=== PATIENT | male | born 1960 | race Two or more races ===

== ENCOUNTER 2025-01-28 08:24 | Emergency (ER) | payer OTHER ==
[~2025-01-28] VITALS: Ht 172.7 cm; Wt 81.5 kg
[2025-01-28 08:53] VITALS: PULSE 90; RESP 20; O2SAT 96
--- NOTE | 2025-01-28 09:19 | DVH ---
CHEST RADIOGRAPH Indication: SOB HX RIB FX Technique: Frontal and lateral view of the chest was obtained Comparison: None FINDINGS: Lines and Tubes: None Lungs: Mild increased interstitial prominence. Pleura: No effusion. No pneumothorax. Cardiomediastinal contours: Unremarkable Bones: Unremarkable IMPRESSION: Possible mild pulmonary vascular congestion or viral pneumonia
--- NOTE | 2025-01-28 09:20 | ED.PDOC ---
History of Present Illness HPI Comments 64-year-old male with PMHx Lung Cancer presents with a chief complaint of RUQ rib cage pain x onset November 2024. Patient states that he had a fall and fractured his ribs in November 2024. Patient is now stating that he is having pain to the area and the pain is made worse with movement. Patient is mainly her for pain management. No other symptoms or modifying factors present at this time. Chief Complaint: Shortness of Breath Time Seen by MD: 09:11 Primary Care Provider: unknown Reviewed Notes: Medications, Allergies Allergies: Coded Allergies: NO KNOWN ALLERGIES (Unverified , 01/28/25) Information Source: Patient Mode of Arrival: Ambulatory Severity: Moderate Timing: Months Duration: Intermittent Prehospital treatment: None Past Medical History PAST MEDICAL HISTORY: Cancer Surgical History: Denies all surgeries Family History Family History: Reviewed,noncontributory to illness Social History Smoker: Non-Smoker Alcohol: Denies ETOH Use Drugs: Denies Drug Use Lives In: Home Constitutional: denies: chills, diaphoresis, fatigue, fever, malaise, sweats, weakness, others EENTM: denies: blurred vision, double vision, ear bleeding, ear discharge, ear drainage, ear pain, ear ringing, eye pain, eye redness, hearing loss, mouth pain, mouth swelling, nasal discharge, nose bleeding, nose congestion, nose pain, photophobia, tearing, throat pain, throat swelling, voice changes, others Respiratory: denies: cough, hemoptysis, orthopnea, SOB at rest, shortness of breath, SOB with excertion, stridor, wheezing, others Cardiovascular: denies: chest pain, dizzy spells, diaphoresis, Dyspnea on exertion, edema, irregular heart beat, left arm pain, lightheadedness, palpitations, PND, syncope, others Gastrointestinal: denies: abdomen distended, abdominal pain, blood streaked bowels, constipated, diarrhea, dysphagia, difficulty swallowing, hematemesis, melena, nausea, poor appetite, poor fluid intake, rectal bleeding, rectal pain, vomiting, others Genitourinary: denies: burning, dysuria, flank pain, frequency, hematuria, incontinence, penile discharge, penile sore, pain, testicle pain, testicle swelling, urgency, others Neurological: denies: dizziness, fainting, headache, left sided numbness, left sided weakness, numbness, paresthesia, pre-existing deficit, right sided numbness, right sided weakness, seizure, speech problems, tingling, tremors, weakness, others Musculoskeletal: reports: muscle pain; denies: back pain, gout, joint pain, joint swelling, muscle stiffness, neck pain, others Integumetry: denies: bruises, change in color, change in hair/nails, dryness, laceration, lesions, lumps, rash, wounds, others Allergic/Immunocompromised: denies: Difficulty Healing, Frequent Infections, Hives, Itching, others Hematologic/Lymphatic: denies: anemia, blood clots, easy bleeding, easy br uising, swollen glands, others Endocrine: denies: excessive hunger, excessive sweating, excessive thirst, excessive urination, flushing, intolerance to cold, intolerance to heat, unexplained weight gain, unexplained weight loss, others Psychiatric: denies: anxiety, bipolar disorder, depression, hopeless, panic disorder, schizophrenia, sleepless, suicidal, others All Other Systems: Reviewed and Negative Physical Exam General Appearance: No Apparent Distress, Normal HEENT: Normal ENT Inspection, Pharynx Normal, TMs Normal Neck: Full Range of Motion, Non-Tender, Normal, Normal Inspection Respiratory: Chest Non-Tender, Lungs Clear, No Accessory Muscle Use, No Respiratory Distress, Normal Breath Sounds Cardiovascular: No Edema, No JVD, No Murmur, No Gallop, Normal Peripheral Pulses, Regular Rate/Rhythm Breast Exam: Deferred Gastrointestinal: No Organomegaly, No Pulsatile Mass, Normal Bowel Sounds, RUQ, Soft, Tenderness Genitalia: Deferred Pelvic: Deferred Rectal: Deferred Extremities: No calf tenderness, Normal capillary refill, Normal inspection, Normal range of motion, Non-tender, No pedal edema Musculoskeletal : Apperance: Normal Neurologic: Alert, applied science [employer] technologies dean II-XII nml as Tested, No Motor Deficits, Normal Affect, Normal Mood, No Sensory Deficits Cerebellar Function: Normal Reflexes: Normal Skin: Dry, Normal Color, Warm Lymphatic: No Adenopathy Was a procedure done? Was a procedure done?: No Differential Dx Considerations may include: rib fracture, chest wall strain, chest wall contusion, pneumonia, lung mass, ptx, zoster X-Ray, Labs, Meds, VS Vital Signs Date Time Temp Pulse Resp B/P (MAP) Pulse Ox O2 Delivery O2 Flow Rate FiO2 3/16/25 08:54 97.9 90 20 116/82 (93) 96 97.9 01/28/25 08:54 90 22 96 Room Air 01/28/25 08:53 90 20 96 Room Air* 0 21 01/28/25 08:46 20 97 Room Air* 0 21 01/28/25 08:43 98.0 93 20 110/58 (75) 97 98.0 01/28/25 08:41 90 Time of 1ST Reevaluation: 09:41 Reevaluation 1ST: Unchanged Time of 2ND Reevaluation: 10:29 Reevaluation 2ND: Improved Patient Education/Counseling: Diagnosis, Treatment, Prognosis, Need For Follow Up Family Education/Counseling: No Family Present Additional Information Previous visit documents reviewed: The following tests were ordered, and results were reviewed by me: CXR, EKG I reviewed and agreed with the following test results read by other providers: Radiologist I discussed treatment and results with medical personnel and: Patient Departure 1 Departure Time of Disposition: 10:29 Impression: Primary Impression: Pneumonia Qualified Codes: J18.9 - Pneumonia, unspecified organism Additional Impression: Chest wall pain Disposition: 01 HOME / SELF CARE / HOMELESS Condition: Good e-Prescriptions Ibuprofen Micronized (MOTRIN TABLET) 600 Mg Tb 600 MG PO TID PRN, #40 TAB *Black box warning-NSAIDS can increase risk of CA & hypertension, GI irritation, ulceration, bleed, perferation. Do not use post cardiac surgery. Use short duration/lowest effective dose. Prov: HUONG DECKER MD 01/28/25 Azithromycin (Zithromax Z-Christian) 250 Mg Tab 250 MG PO DAILY for 5 Days, #6 TAB Prov: HUONG DECKER MD 01/28/25 Discharged With: Self Critical Care Note Critical Care Time?: No Stability Stability form required: No Heart Score Heart Score: Heart Score Response (Comments) Value History N/A 0 EKG N/A 0 Age N/A 0 Risk Factors N/A 0 Troponin N/A 0 Total 0 I personally scribed for HUONG DECKER MD ([email or web address]) on 01/28/25 at 09:20. Electronically submitted by Tima Riggs ([email or web address]). HUONG DECKER MD Jan 28, 2025 09:20
[2025-01-28] MEDS ORDERED: AZITTAB PO (10:31)
[2025-01-28] MEDS ORDERED: IBU600T PO (10:31)
[2025-01-28 10:32] VITALS: BP 121/80; PULSE 88; RESP 18; TEMP 98.1; O2SAT 96
--- NOTE | 2025-01-29 14:41 | ECG ---
[facility] Test Date: 2025-01-28 Test Time: 08:41:36 Pat Name: JANETTE MADISON Department: er Room: Gender: M Acid Concentrator: : 1960 Requested By: HUONG DECKER Order Number: [id number] Reading MD: Chino Rangel Measurements Intervals [place] Rate: 90 P: 48 TN: 165 QRS: 40 QRSD: 106 T: 8 QT: 381 QTc: 467 Interpretive Statements Sinus rhythm Consider anterior infarct Electronically Signed On 01-31-2025 22:31:14 PDT by Chino Rangel Please click the below link to view image of tracing.
== END 2025-01-28 10:53 | disposition home or self-care (01) ==
LOC: ER 08:24
DX: J18.9 Pneumonia, unspecified organism (principal); R07.89 Other chest pain
CPT/HCPCS: 71046; 93005

== ENCOUNTER 2025-02-01 09:11 | Inpatient (IN) | payer OTHER ==
[~2025-02-01] VITALS: Ht 174 cm; Wt 81.0 kg
[~2025-02-01 09:11] MED LIST: AZITTAB PO; IBU600T PO
--- NOTE | 2025-02-01 09:24 | ED.PDOC ---
SOB-HPI HPI Comments 64 y/o M, with PMHX of COPD and pneumonia presents to the ED for CC of rib pain. Patient states, he has been experiencing right sided rib pain with associated symptoms of shortness of breath x5days. Patient relays, that he was previously seen at [facility] on 01/27/25 and was diagnosed with pneumonia; patient was prescribe Zpack finished last tablet today (02/01/25). Patient endorses, that he believes symptoms are due to previous rib fracture in October 2024 however, is unsure. Patient denies fever, chills, cough, sore-throat, or chest pain. No other associated symptoms, modifiers, recent injuries or sick contacts at this time. Chief Complaint: Shortness of Breath Time Seen by MD: 09:25 Primary Care Provider: unknown Reviewed notes: Nurses Notes, Medications, Allergies Information Source: Patient Mode of Arrival: Ambulatory Severity: Moderate Timing: Hours Duration: Since onset Context: At Rest PE Risk Factors: None History of: COPD Prehospital treatment: None Modifying Factors: Nothing Past Medical History PAST MEDICAL HISTORY: Cancer, COPD Surgical History: Denies all surgeries Family History Family History: Reviewed,noncontributory to illness Social History Smoker: Non-Smoker Alcohol: Denies ETOH Use Drugs: Denies Drug Use Lives In: Home Constitutional: denies: chills, diaphoresis, fatigue, fever, malaise, sweats, weakness, others EENTM: denies: blurred vision, double vision, ear bleeding, ear discharge, ear drainage, ear pain, ear ringing, eye pain, eye redness, hearing loss, mouth pain, mouth swelling, nasal discharge, nose bleeding, nose congestion, nose pain, photophobia, tearing, throat pain, throat swelling, voice changes, others Respiratory: reports: shortness of breath; denies: cough, hemoptysis, orthopnea, SOB at rest, SOB with excertion, stridor, wheezing, others Cardiovascular: denies: chest pain, dizzy spells, diaphoresis, Dyspnea on exertion, edema, irregular heart beat, left arm pain, lightheadedness, palpitations, PND, syncope, others Gastrointestinal: denies: abdomen distended, abdominal pain, blood streaked bowels, constipated, diarrhea, dysphagia, difficulty swallowing, hematemesis, melena, nausea, poor appetite, poor fluid intake, rectal bleeding, rectal pain, vomiting, others Genitourinary: denies: burning, dysuria, flank pain, frequency, hematuria, incontinence, penile discharge, penile sore, pain, testicle pain, testicle swelling, urgency, others Neurological: denies: dizziness, fainting, headache, left sided numbness, left sided weakness, numbness, paresthesia, pre-existing deficit, right sided numbness, right sided weakness, seizure, speech problems, tingling, tremors, weakness, others Musculoskeletal: reports: others (rib pain); denies: back pain, gout, joint pain, joint swelling, muscle pain, muscle stiffness, neck pain Integumetry: denies: bruises, change in color, change in hair/nails, dryness, laceration, lesions, lumps, rash, wounds, others Allergic/Immunocompromised: denies: Difficulty Healing, Frequent Infections, Hives, Itching, others Hematologic/Lymphatic: denies: anemia, blood clots, easy bleeding, easy bruising, swollen glands, others Endocrine: denies: excessive hunger, excessive sweating, excessive thirst, excessive urination, flushing, intolerance to cold, intolerance to heat, unexplained weight gain, unexplained weight loss, others Psychiatric: denies: anxiety, bipolar disorder, depression, hopeless, panic disorder, schizophrenia, sleepless, suicidal, others All Other Systems: Reviewed and Negative Physical Exam General Appearance: Moderate Distress HEENT: Normal ENT Inspection, Pharynx Normal, TMs Normal Neck: Full Range of Motion, Non-Tender, Normal, Normal Inspection Respiratory: Accessory Muscle Use, Wheezing Cardiovascular: No Edema, No JVD, No Murmur, No Gallop, Normal Peripheral Pulses, Regular Rate/Rhythm Breast Exam: Deferred Gastrointestinal: No Organomegaly, Non Tender, No Pulsatile Mass, Normal Bowel Sounds, Soft Genitalia: Deferred Pelvic: Deferred Rectal: Deferred Extremities: No calf tenderness, Normal capillary refill, Normal inspection, Normal range of motion, Non-tender, No pedal edema Musculoskeletal : Apperance: Normal Neurologic: Alert, residency coordinator II-XII nml as Tested, No Motor Deficits, Normal Affect, Normal Mood, No Sensory Deficits Cerebellar Function: Normal Reflexes: Normal Skin: Dry, Normal Color, Warm Peripheral Pulses: 3+ Radial (R), 3+ Radial (L) Lymphatic: No Adenopathy Was a procedure done? Was a procedure done?: No Differential Dx Differential Diagnosis: Anxiety, Asthma, Bronchitis, CHF, COPD, Pneumonia, Respiratory Distress, Sinusitis, Pharyngitis X-Ray, Labs, Meds, VS Vital Signs Date Time Temp Pulse Resp B/P (MAP) Pulse Ox O2 Delivery O2 Flow Rate FiO2 02/01/25 10:08 98.2 89 16 123/78 (93) 98 98.2 02/01/25 10:08 89 16 98 Room Air* 0 21 02/01/25 09:23 96 02/01/25 09:18 97.9 100 22 115/73 (87) 97 97.9 02/01/25 09:18 22 97 Room Air* 0 21 Lab Test 02/01/25 10:00 Range/Units White Blood Count 4.1 L 4.4-10.8 10^3/uL Red Blood Count 4.45 L 4.5-5.90 10^6/uL Hemoglobin 15.5 13.5-17.5 g/dL Hematocrit 45.5 41.0-53.0 % Mean Corpuscular Volume 102.2 H 80.0-100.0 fL Mean Corpuscular Hemoglobin 34.9 H 28.0-32.0 pg Mean Corpuscular Hemoglobin Concent 34.1 32.0-36.0 g/dL Red Cell Distribution Width 15.7 H 11.8-14.3 % Platelet Count 247 140-450 10^3/uL Mean Platelet Volume 7.4 6.9-10.8 fL Neutrophils (%) (Auto) 39.6 37.0-80.0 % Lymphocytes (%) (Auto) 49.0 10.0-50.0 % Monocytes (%) (Auto) 7.1 0.0-12.0 % Eosinophils (%) (Auto) 3.1 0.0-7.0 % Basophils (%) (Auto) 1.2 0.0-2.0 % Neutrophils # (Auto) 1.6 1.6-8.6 10 ^3/uL Lymphocytes # (Auto) 2.0 0.4-5.4 10 ^3/uL Monocytes # (Auto) 0.3 0-1.3 10 ^3/uL Eosinophils # (Auto) 0.1 0-0.8 10 ^3/uL Basophils # (Auto) 0 0-0.2 10 ^3/uL Nucleated Red Blood Cells 0.2 % Sodium Level 143 136-145 mmol/L Potassium Level 4.2 3.5-5.1 mmol/L Chloride Level 109 H 98-107 mmol/L Carbon Dioxide Level 24 20-31 mmol/L Anion Gap 10 5-15 Blood Urea Nitrogen 7 L 9-23 mg/dL Creatinine 0.84 0.700-1.30 mg/dL Glomerular Filtration Rate Calc 96 >90 mL/min BUN/Creatinine Ratio 8.3 L 10.0-20.0 Serum Glucose 82 74-106 mg/dL Calcium Level 9.3 8.7-10.4 mg/dL Current Medications Medications (Trade) Dose Ordered Sig/Adlair Route Start Time Stop Time Status Last Admin Methylprednisolone Sodium Succinate (Solu Medrol) 125 mg ONCE ONCE IV 02/01/25 10:45 02/01/25 10:46 DC 02/01/25 10:53 Ceftriaxone Sodium 50 ml @ 100 mls/hr ONCE ONCE IV 02/01/25 10:45 02/01/25 11:15 DC 02/01/25 10:54 [place] [address] Ph: [phone] DIAGNOSTIC IMAGING Diagnostic Imaging Report : [id number] Signed PATIENT: JANETTE MADISON ACCT: [id number] UNIT: [id number] : 1960 LOC: ER ROOM / BED: / AGE / SEX: 64 / M ADM STATUS: REG ER SERVICE [id number] ORDERING PHYSICIAN: ADAM BROWN MD PROCEDURE(s): CXRP - CHEST PORTABLE REASON: cough ORDER NUMBER(s): [id number], ACCESSION NUMBER(s): [id number] CHEST RADIOGRAPH Indication: cough Technique: Single frontal view of the chest was obtained COMPARISON: None FINDINGS: Lines and Tubes: None Lungs: Peripheral right mid and lower lung airspace disease. Pleura: No effusion. No pneumothorax. Cardiomediastinal contours: Unremarkable Bones: Unremarkable IMPRESSION: Right mid and lower lung airspace disease. ATED BY: SUSHANT BROWN MD DICTATED DATE/TIME: 02/01/25 1012 SIGNED BY: SUSHANT BROWN MD SIGNED DATE/TIME: 02/01/25 1012 CC: Patient alert. Complaining of shortness a breath. Feels several weeks ago for which she was diagnosed with multiple rib fractures. Vitals stable. He does have COPD. Stopped smoking. He does use accessory muscles to help him breathe. Was given steroid. Was given Rocephin. Possible pneumonitis. Reviewed his previous visit for which she was given antibiotics for possible pneumonia. Explained to the patient. Continue cardiac monitoring. Time of 1ST Reevaluation: 09:55 Reevaluation 1ST: Unchanged Patient Education/Counseling: Diagnosis, Treatment Family Education/Counseling: No Family Present Departure 1 Departure Time of Disposition: 10:47 Impression: Primary Impression: Pneumonitis Additional Impression: COPD exacerbation Disposition: ADMITTED INPATIENT Admit to: Med Surg Condition: Guarded Critical Care Note Critical Care Time?: No Stability Stability form required: No Heart Score Heart Score: Heart Score Response (Comments) Value History Slightly Suspicious 0 EKG Normal 0 Age >65 2 Risk Factors 1 or 2 risk factors 1 Troponin N/A 0 Total 3 I personally scribed for ADAM BROWN MD ([email or web address]) on 02/01/25 at 09:24. Electronically submitted by Cassidy Rubio ([email or web address]). I personally scribed for ADAM BROWN MD ([email or web address]) on 02/01/25 at 09:48. Electronically submitted by Cassidy Rubio ([employer]). I personally scribed for ADAM BROWN MD ([email or web address]) on 02/01/25 at 11:19. Electronically submitted by Cassidy Rubio ([employer]). I personally scribed for ADAM BROWN MD ([email or web address]) on 02/01/25 at 12:08. Electronically submitted by Cassidy Rubio ([employer]). ADAM BROWN MD Feb 01, 2025 09:24
[2025-02-01 10:08] VITALS: PULSE 89; RESP 16; O2SAT 98
--- NOTE | 2025-02-01 10:15 | DVH ---
CHEST RADIOGRAPH Indication: cough Technique: Single frontal view of the chest was obtained COMPARISON: None FINDINGS: Lines and Tubes: None Lungs: Peripheral right mid and lower lung airspace disease. Pleura: No effusion. No pneumothorax. Cardiomediastinal contours: Unremarkable Bones: Unremarkable IMPRESSION: Right mid and lower lung airspace disease.
[2025-02-01] MEDS: methylPREDNISolone SOD SUCC 125 MG/2 ML VL IV ONE (10:53)
[2025-02-01] MEDS: cefTRIAXone 1GM/50ML D5W 50 ML IV ONE (10:54)
[2025-02-01 10:58] LABS: Basophils # (auto) 0 10 ^3/uL (0-0.2); Eosinophils # (auto) 0.1 10 ^3/uL (0-0.8); Hematocrit 45.5 % (41.0-53.0); Monocytes # (auto) 0.3 10 ^3/uL (0-1.3); Neutrophils # (auto) 1.6 10 ^3/uL (1.6-8.6)
[2025-02-01 11:00] LABS: Basophils % (auto) 1.2 % (0.0-2.0); Eosinophils % (auto) 3.1 % (0.0-7.0); Hemoglobin 15.5 g/dL (13.5-17.5); Mean Corpuscular Hemoglobin 34.9 pg (28.0-32.0); Mean Corpuscular Hgb Conc. 34.1 g/dL (32.0-36.0); Mean Corpuscular Volume 102.2 fL (80.0-100.0); Monocytes % (auto) 7.1 % (0.0-12.0); Neutrophils % (auto) 39.6 % (37.0-80.0); Nucleated Red Blood Cells % 0.2 %; Platelet Count (auto) 247 10^3/uL (140-450); Red Blood Cells 4.45 10^6/uL (4.5-5.90); Red Cell Distribution Width 15.7 % (11.8-14.3); White Blood Cell 4.1 10^3/uL (4.4-10.8)
[2025-02-01 11:09] LABS: Potassium 4.2 mmol/L (3.5-5.1); Sodium 143 mmol/L (136-145)
[2025-02-01 11:10] LABS: Anion Gap 10 (5-15); Carbon Dioxide 24 mmol/L (20-31)
[2025-02-01 11:11] LABS: Calcium 9.3 mg/dL (8.7-10.4)
[2025-02-01 11:15] LABS: BUN/Creatinine Ratio 8.3 (10.0-20.0); Glucose 82 mg/dL (74-106)
[2025-02-01 11:16] LABS: Blood Urea Nitrogen 7 mg/dL (9-23); Chloride 109 mmol/L (98-107)
--- NOTE | 2025-02-01 14:29 | DVHHP2 ---
History of Present Illness Reason for Visit: Right rib pain History of Present Illness Rex Lovett is a 64-year-old male with past medical history of COPD, lung cancer, pneumonia, lobectomy, and right rib pain due to a rib fracture from a fall that happened in October of 2024. Patient reports that 3 of his ribs are fractured when he picked up a barbecue grill. Patient currently reports the pain 8/10 stabbing and constant in nature. Patient also reports that he just moved up here from [place] in December. 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 Patient denies any chest pain, fever, chills, recent trauma or injury, recent sick contacts, lightheadedness, weakness, dizziness, abdominal pain, nausea, vomiting, diarrhea, and wheezing. Patient also reports that he does not take any home medications. Patient reports that he finished his entire dose of antibiotics for the pneumonia that he was recently diagnosed with. Pulmonary: COPD, Pneumonia Past Medical History Lung cancer Past Surgical History: Other (Lobectomy in February of 2024) Family History: None Smoke: No ALCOHOL: heavy Drugs: None Lives: with Family Domestic Violence: Neg Review of Systems Musculoskeletal: other (Right rib pain) Allergies: Coded Allergies: NO KNOWN ALLERGIES (Unverified , 01/28/25) Exam Vital Signs Vital Signs Date Time Temp Pulse Resp B/P (MAP) Pulse Ox O2 Delivery O2 Flow Rate FiO2 02/01/25 14:09 65 17 114/75 (88) 96 02/01/25 10:08 98.2 98.2 02/01/25 10:08 Room Air* 0 21 General Appearance: Alert, Oriented X3, Cooperative, No acute distress HEENT: Atraumatic, PERRLA, EOMI, Mucous membr. moist/pink Respiratory: Clear to auscultation, Normal air movement Cardiovascular: Regular rate, Normal S1, Normal S2, No murmurs Abdominal: Normal bowel sounds, Soft, No tenderness, No hepatospenomegaly, No masses Extremities: No clubbing, No cyanosis, No edema, Normal pulses, No tenderness/swelling Skin: No significant lesion Neuro: Normal speech, Strength at 5/5 X4 ext, Normal tone, Sensation intact Psych/Mental Status: Mental status NL, Mood NL Labs/Xrays Labs Test 02/01/25 10:00 Range/Units White Blood Count 4.1 L 4.4-10.8 10^3/uL Red Blood Count 4.45 L 4.5-5.90 10^6/uL Hemoglobin 15.5 13.5-17.5 g/dL Hematocrit 45.5 41.0-53.0 % Mean Corpuscular Volume 102.2 H 80.0-100.0 fL Mean Corpuscular Hemoglobin 34.9 H 28.0-32.0 pg Mean Corpuscular Hemoglobin Concent 34.1 32.0-36.0 g/dL Red Cell Distribution Width 15.7 H 11.8-14.3 % Platelet Count 247 140-450 10^3/uL Mean Platelet Volume 7.4 6.9-10.8 fL Neutrophils (%) (Auto) 39.6 37.0-80.0 % Lymphocytes (%) (Auto) 49.0 10.0-50.0 % Monocytes (%) (Auto) 7.1 0.0-12.0 % Eosinophils (%) (Auto) 3.1 0.0-7.0 % Basophils (%) (Auto) 1.2 0.0-2.0 % Neutrophils # (Auto) 1.6 1.6-8.6 10 ^3/uL Lymphocytes # (Auto) 2.0 0.4-5.4 10 ^3/uL Monocytes # (Auto) 0.3 0-1.3 10 ^3/uL Eosinophils # (Auto) 0.1 0-0.8 10 ^3/uL Basophils # (Auto) 0 0-0.2 10 ^3/uL Nucleated Red Blood Cells 0.2 % Sodium Level 143 136-145 mmol/L Potassium Level 4.2 3.5-5.1 mmol/L Chloride Level 109 H 98-107 mmol/L Carbon Dioxide Level 24 20-31 mmol/L Anion Gap 10 5-15 Blood Urea Nitrogen 7 L 9-23 mg/dL Creatinine 0.84 0.700-1.30 mg/dL Glomerular Filtration Rate Calc 96 >90 mL/min BUN/Creatinine Ratio 8.3 L 10.0-20.0 Serum Glucose 82 74-106 mg/dL Calcium Level 9.3 8.7-10.4 mg/dL CHEST RADIOGRAPH Indication: cough Technique: Single frontal view of the chest was obtained COMPARISON: None FINDINGS: Lines and Tubes: None Lungs: Peripheral right mid and lower lung airspace disease. Pleura: No effusion. No pneumothorax. Cardiomediastinal contours: Unremarkable Bones: Unremarkable IMPRESSION: Right mid and lower lung airspace disease. Assessment/Plan Assessment/Plan Assessment Intractable right rib pain History of right rib fracture due to a fall in October of 2024 ETOH use History of COPD History of lung cancer History of pneumonia History of right lobectomy in February of 2024 Plan Admit to [facility] Pain management UA noted Chest x-ray noted EKG noted Lovenox Diet Discussed plan of care with patient and nurse No home medications reconciled Counseled patient on cessation of EtOH use Plan discussed with: Patient My Orders Orders - EVANGELISTA FAY Procedure Category Date Status Time Admit ADMIT 02/01/25 Transmitted 14:20 Allergies LIUDMILA 02/01/25 Transmitted 14:20 Code Status CODE 02/01/25 Transmitted 14:20 Hydrocodone-Acet PHA 02/01/25 Transmitted 5/325mg Tab ([place] 14:30 Ondansetron Hcl PHA 02/01/25 Transmitted (Zofran) 14:30 Complete Blood Count LAB 02/02/25 Verified 04:00 Comprehensive LAB 02/02/25 Verified Metabolic Panel 04:00 Cardiac DIET 02/01/25 Transmitted Diet-2gna,Lofat,Lochol Dinner Enoxaparin Sodium PHA 02/02/25 Transmitted (Lovenox) 10:00 Acetaminophen Tablet PHA 02/01/25 Transmitted (Tylenol Tablet) 14:30 Morphine Sulfate PHA 02/01/25 Transmitted Injection 14:30 Date of Service: Feb 01, 2025 Billing Provider: EVANGELISTA FAY Common Visit Codes: [id number] INP/OBS CARE (HIGH) EVANGELISTA FAY Feb 01, 2025 14:29
[2025-02-01] MEDS ORDERED: ACETAMINOPHEN 325 MG TAB PO PRN (14:30)
[2025-02-01] MEDS: ONDANSETRON HCL 4 MG/2 ML VIAL IV PRN (15:09)
[2025-02-01] MEDS: MORPHINE SULFATE INJ 2 MG/ml SYRG IV PRN (15:10)
[2025-02-01 19:33] LABS: Urine Bacteria None Seen /hpf (None Seen)
[2025-02-01 19:48] LABS: Urine Blood Negative /uL (Negative); Urine Clarity Clear (Clear); Urine Color Yellow (Yellow); Urine Mucus FEW (None Seen); Urine Protein, UAD Negative (Negative); Urine Specific Gravity 1.018 (1.001-1.035); Urine Squamous Epithelial Cell FEW /hpf (<5); Urine Urobilinogen Normal (Negative); Urine WBC < 1 /HPF (0-3); Urine pH 5.5 (5.0-9.0)
[2025-02-01 20:00] VITALS: PULSE 100; RESP 15; O2SAT 95
[2025-02-01 20:53] VITALS: BP 113/70; PULSE 100; RESP 15; TEMP 98.2; O2SAT 95
[2025-02-01] MEDS: HYDROcodone-ACET 5/325MG TAB PO PRN (21:08)
[2025-02-02] VITALS (8 sets, daily range): BP systolic 92–116; BP diastolic 61–74; PULSE 60–100; RESP 14–20; TEMP 97.5–98.2; O2SAT 95–97
[2025-02-02 07:15] LABS: Basophils # (auto) 0 10 ^3/uL (0-0.2); Basophils % (auto) 0.1 % (0.0-2.0); Eosinophils # (auto) 0 10 ^3/uL (0-0.8); Hematocrit 42.3 % (41.0-53.0); Hemoglobin 14.7 g/dL (13.5-17.5); Lymphocytes # (auto) 1.3 10 ^3/uL (0.4-5.4); Lymphocytes % (auto) 21.5 % (10.0-50.0); Mean Corpuscular Hemoglobin 35.7 pg (28.0-32.0); Mean Corpuscular Hgb Conc. 34.8 g/dL (32.0-36.0); Mean Corpuscular Volume 102.5 fL (80.0-100.0); Monocytes # (auto) 0.4 10 ^3/uL (0-1.3); Monocytes % (auto) 7.2 % (0.0-12.0); Neutrophils # (auto) 4.2 10 ^3/uL (1.6-8.6); Neutrophils % (auto) 71.2 % (37.0-80.0); Nucleated Red Blood Cells % 0.1 %; Platelet Count (auto) 241 10^3/uL (140-450); Red Blood Cells 4.12 10^6/uL (4.5-5.90); Red Cell Distribution Width 15.4 % (11.8-14.3); White Blood Cell 5.9 10^3/uL (4.4-10.8)
[2025-02-02 07:30] LABS: Alanine Aminotransferase 18 U/L (7-40); Alkaline Phosphatase 56 U/L (46-116); Anion Gap 8 (5-15); Blood Urea Nitrogen 14 mg/dL (9-23); Calcium 9.5 mg/dL (8.7-10.4); Carbon Dioxide 27 mmol/L (20-31); Chloride 106 mmol/L (98-107); Potassium 4.9 mmol/L (3.5-5.1); Sodium 141 mmol/L (136-145); Total Protein 6.4 g/dL (5.7-8.2)
[2025-02-02 07:31] LABS: Aspartate Aminotransferase 14 U/L (13-40); BUN/Creatinine Ratio 15.7 (10.0-20.0)
[2025-02-02 07:34] LABS: Bilirubin, Total 1.7 mg/dL (0.2-1.0); Glucose 114 mg/dL (74-106)
[2025-02-02] MEDS: ENOXAPARIN SOD 40 MG/0.4 ML SYRINGE SC SCH (07:56)
--- NOTE | 2025-02-02 12:03 | DVH ---
EXAMINATION: XY R RIB XRAY INDICATION: right rib frature COMPARISON: None TECHNIQUE: Frontal view of the chest and 4 views of the left ribs history FINDINGS: No focal consolidation, pleural effusion or significant pneumothorax. Normal cardiomediastinal silhou ette. Possible subtle nondisplaced fracture of the right lateral 10th rib. IMPRESSION: No acute cardiopulmonary disease. Possible subtle nondisplaced fracture of the right lateral 10th rib. Recommend correlation with point tenderness.
--- NOTE | 2025-02-02 12:18 | ECG ---
[facility] Test Date: 2025-02-01 Test Time: 09:23:40 Pat Name: JANETTE MADISON Department: ED Room: 0218 A Gender: M Clinical Quality Analyst: SOCORRO : 1960 Requested By: ADAM BROWN Order Number: [id number] Reading MD: Chino Rangel Measurements Intervals [place] Rate: 96 P: 61 OR: 154 QRS: 28 QRSD: 86 T: 13 QT: 370 QTc: 468 Interpretive Statements Sinus rhythm Consider anterior infarct Borderline T abnormalities, inferior leads Baseline wander in lead(s) V6 Electronically Signed On 02-03-2025 17:32:49 PDT by Chino Rangel Please click the below link to view image of tracing.
--- NOTE | 2025-02-02 18:10 | DVHPNRES ---
Progress Note Date Seen: Feb 02, 2025 Resident Creating Document: RAMA CASTANON RESIDENT Medical Necessity Reason Pt with a Central, PICC or Fol: No Subjective Review of Systems Patient is a 64-year-old male with a past medical history of lung cancer (right lung) status post lobectomy, COPD came to the ER with a chief complaint of right lower chest pain for 2 months prior to admission. Patient reported that he is from [place], [place] recently moved to the area. In November he fell on his right side and reportedly injured his chest following which he went to the hospital for workup where he was told that he did not have any rib fracture. Patient continued to have mild pain what 2 nights ago he picked up a barbecue grill pain exacerbated rating 8/10 on intensity, stabbing and constant in nature. Patient denied any other chest pain, fever, chills,recent sick contacts, lightheadedness, weakness, dizziness, abdominal pain, nausea, vomiting, diarrhea, and wheezing. Past medical history: COPD, lung cancer Past surgical history: Right lung Lobectomy 2023 Social history: Patient was with family and drinks 6 oz of whiskey every day, denies smoking or other drug use Home medications: None Review of systems Patient seen and examined at bedside Reports right lower chest pain in the anterior axillary to mid axillary line on coughing, laughing, sneezing. Denies shortness of breath, palpitations, chest pain Objective vital signs Vital Sign Date Time Temp Pulse Resp B/P (MAP) Pulse Ox O2 Delivery O2 Flow Rate FiO2 02/02/25 17:00 97.8 64 18 108/70 (83) 97 97.8 02/02/25 07:30 Room Air* 0 21 Total Intake and Output 02/01/25 02/01/25 02/02/25 15:00 23:00 07:00 Intake Total 800 ml 300 ml Output Total 0 ml Balance 800 ml 300 ml medications Current Medications Medications Dose Ordered Sig/Aldair Route Start Time Stop Time Status Last Admin Dose Admin Acetaminophen/ Hydrocodone Bitart 1 tab Q4HP PRN PO 02/01/25 14:30 02/02/25 11:05 1 TAB Ondansetron HCl 4 mg Q4HP PRN IV 02/01/25 14:30 02/01/25 15:09 4 MG Enoxaparin Sodium 40 mg DAILY SC 02/02/25 10:00 02/02/25 07:56 40 MG Acetaminophen 650 mg Q6HP PRN PO 02/01/25 14:30 Morphine Sulfate 2 mg Q4HPRN PRN IV 02/01/25 14:30 02/02/25 14:30 2 MG Examination Constitutional: Patient was alert and oriented to time, place and person and does not appear to be in any acute distress Gen - no pallor, no icterus, no cyanosis, no clubbing, no LAD, no edema . Skin - Patients skin is warm and dry.. HEENT - normocephalic, atraumatic, moist mucous membranes. Neck - full ROM, no LAD, no JVD Pulmonary - B/L equal air entry, no crackles , no wheezing, no stridor. cardiovascular - normal S1,S2 heard. no murmurs heard. peripheral pulses normal radial 2+, pedal 2+. GI - soft abdomen without tenderness to palpation. no hepatospleenomegaly. Bowel sounds normoactive Neurological - Bilateral upper extremity strength 5/5, bilateral lower extremity strength 5/5, no facial droop, normal speech, no tremor, no sensory deficiets. laboratory and microbiology Laboratory Tests 02/02/25 05:55 Test 02/02/25 05:55 Range/Units Serum Glucose 114 H 74-106 mg/dL Problem List/Assessment/Plan Problem List/Assessment/Plan Assessment Intractable right rib pain ? Right rib fracture ?h/o lung cancer right lung s/p lobectomy h/o COPD Right rib x-ray shows FINDINGS: No focal consolidation, pleural effusion or significant pneumothorax. Normal cardiomediastinal silhouette. Possible subtle nondisplaced fracture of the right lateral 10th rib. IMPRESSION: No acute cardiopulmonary disease. Possible subtle nondisplaced fracture of the right lateral 10th rib. Plan Pain management - records to be obtained from [facility] [place] DVT prophylaxis: Enoxaparin PUD prophylaxis: Famotidine Goals of care discussed with the patient for over 21 minutes. Full code Plan discussed with Dr. Gomez Plan discussed with: Patient My Orders My Orders Orders - RAMA CASTANON RESIDENT Procedure Category Date Status Time R Rib Xray XY 02/02/25 Resulted 09:43 Date of Service: Feb 02, 2025 Billing Provider: BAYRON GOMEZ MD Common Visit Codes: [id number] INP/OBS CARE(HIGH) RAMA CASTANON RESIDENT Feb 02, 2025 18:10 BAYRON GOMEZ MD Feb 03, 2025 20:11
[2025-02-03 01:00] VITALS: BP 100/60; PULSE 70; RESP 18; TEMP 98; O2SAT 95
[2025-02-03 05:00] VITALS: BP 105/66; PULSE 68; RESP 18; TEMP 98.1; O2SAT 94
[2025-02-03 07:19] LABS: Basophils # (auto) 0 10 ^3/uL (0-0.2); Basophils % (auto) 0.9 % (0.0-2.0); Eosinophils # (auto) 0.1 10 ^3/uL (0-0.8); Eosinophils % (auto) 1.1 % (0.0-7.0); Hematocrit 39.9 % (41.0-53.0); Hemoglobin 13.9 g/dL (13.5-17.5); Lymphocytes # (auto) 2.1 10 ^3/uL (0.4-5.4); Lymphocytes % (auto) 38.8 % (10.0-50.0); Mean Corpuscular Hemoglobin 35.4 pg (28.0-32.0); Mean Corpuscular Hgb Conc. 34.8 g/dL (32.0-36.0); Mean Corpuscular Volume 101.7 fL (80.0-100.0); Monocytes # (auto) 0.4 10 ^3/uL (0-1.3); Monocytes % (auto) 6.8 % (0.0-12.0); Neutrophils # (auto) 2.8 10 ^3/uL (1.6-8.6); Neutrophils % (auto) 52.4 % (37.0-80.0); Platelet Count (auto) 210 10^3/uL (140-450); Red Blood Cells 3.92 10^6/uL (4.5-5.90); Red Cell Distribution Width 15.4 % (11.8-14.3); White Blood Cell 5.3 10^3/uL (4.4-10.8)
[2025-02-03 07:26] LABS: Calcium 9.3 mg/dL (8.7-10.4); Chloride 104 mmol/L (98-107); Potassium 4.2 mmol/L (3.5-5.1); Sodium 140 mmol/L (136-145)
[2025-02-03 07:27] LABS: Anion Gap 6 (5-15); Carbon Dioxide 30 mmol/L (20-31)
[2025-02-03 07:32] LABS: Blood Urea Nitrogen 20 mg/dL (9-23); Glucose 82 mg/dL (74-106)
[2025-02-03 09:00] VITALS: BP 113/63; PULSE 67; RESP 16; TEMP 97.7; O2SAT 98
[2025-02-03] MEDS ORDERED: HYDR-4902 PO (09:28)
[2025-02-03 11:46] VITALS: BP 136/64; PULSE 70; RESP 16; TEMP 97.8; O2SAT 98
[2025-02-03 12:50] VITALS: BP 136/64; PULSE 70; RESP 16; TEMP 97.8; O2SAT 98
--- NOTE | 2025-02-03 22:31 | DVHDSRES ---
Discharge Summary Date of Admission Resident Creating Document: RAMA CASTANON RESIDENT Feb 01, 2025 at 14:20 Date of Discharge: Feb 03, 2025 Admitting Diagnosis Intractable right rib pain History of right rib fracture due to a fall in October of 2024 ETOH use History of COPD History of lung cancer History of pneumonia History of right lobectomy in February of 2024 Wounds: none Labs/Diagnostic Data: Laboratory Results Test 02/03/25 05:58 02/02/25 05:55 02/01/25 11:59 White Blood Count 5.3 10^3/uL (4.4-10.8) Red Blood Count 3.92 10^6/uL (4.5-5.90) Hemoglobin 13.9 g/dL (13.5-17.5) Hematocrit 39.9 % (41.0-53.0) Mean Corpuscular Volume 101.7 fL (80.0-100.0) Mean Corpuscular Hemoglobin 35.4 pg (28.0-32.0) Mean Corpuscular Hemoglobin Concent 34.8 g/dL (32.0-36.0) Red Cell Distribution Width 15.4 % (11.8-14.3) Platelet Count 210 10^3/uL (140-450) Mean Platelet Volume 7.5 fL (6.9-10.8) Neutrophils (%) (Auto) 52.4 % (37.0-80.0) Lymphocytes (%) (Auto) 38.8 % (10.0-50.0) Monocytes (%) (Auto) 6.8 % (0.0-12.0) Eosinophils (%) (Auto) 1.1 % (0.0-7.0) Basophils (%) (Auto) 0.9 % (0.0-2.0) Neutrophils # (Auto) 2.8 10 ^3/uL (1.6-8.6) Lymphocytes # (Auto) 2.1 10 ^3/uL (0.4-5.4) Monocytes # (Auto) 0.4 10 ^3/uL (0-1.3) Eosinophils # (Auto) 0.1 10 ^3/uL (0-0.8) Basophils # (Auto) 0 10 ^3/uL (0-0.2) Nucleated Red Blood Cells 0.0 % Sodium Level 140 mmol/L (136-145) Potassium Level 4.2 mmol/L (3.5-5.1) Chloride Level 104 mmol/L (98-107) Carbon Dioxide Level 30 mmol/L (20-31) Anion Gap 6 (5-15) Blood Urea Nitrogen 20 mg/dL (9-23) Creatinine 0.91 mg/dL (0.700-1.30) Glomerular Filtration Rate Calc 93 mL/min (>90) BUN/Creatinine Ratio 22.0 (10.0-20.0) Serum Glucose 82 mg/dL (74-106) Calcium Level 9.3 mg/dL (8.7-10.4) Total Bilirubin 1.7 mg/dL (0.2-1.0) Aspartate Amino Transferase (AST) 14 U/L (13-40) Alanine Aminotransferase (ALT) 18 U/L (7-40) Alkaline Phosphatase 56 U/L (46-116) Total Protein 6.4 g/dL (5.7-8.2) Albumin 4.0 g/dL (3.2-4.8) Urine Color Yellow (Yellow) Urine Clarity Clear (Clear) Urine pH 5.5 (5.0-9.0) Urine Specific Solomon 1.018 (1.001-1.035) Urine Protein Negative (Negative) Urine Ketones Trace (Negative) Urine Blood Negative /uL (Negative) Urine Nitrite Negative (Negative) Urine Bilirubin Negative (Negative) Urine Urobilinogen Normal mg/dL (Negative) Urine Leukocyte Esterase Negative /uL (Negative) Urine RBC 1 /hpf (0 - 3) Urine Microscopic WBC < 1 /HPF (0-3) Urine Squamous Epithelial Cells Few /hpf (<5) Urine Bacteria None seen /hpf (None Seen) Urine Mucus Few (None Seen) Urine Glucose Normal mg/dL (Normal) Other Laboratory Tests 02/03/25 05:58 Brief Hx & Hospital Course: Patient is a 64-year-old male with a past medical history of lung cancer (right lung) status post lobectomy, COPD came to the ER with a chief complaint of right lower chest pain for 2 months prior to admission. Patient reported that he is from [place], [place] recently moved to the area. In November he fell on his right side and reportedly injured his chest following which he went to the hospital for workup where he was told that he did not have any rib fracture. Patient continued to have mild pain what 2 nights ago he picked up a barbecue grill pain exacerbated rating 8/10 on intensity, stabbing and constant in nature. Patient denied any other chest pain, fever, chills,recent sick contacts, lightheadedness, weakness, dizziness, abdominal pain, nausea, vomiting, diarrhea, and wheezing. Past medical history: COPD, lung cancer Past surgical history: Right lung Lobectomy 2023 Social history: Patient was with family and drinks 6 oz of whiskey every day, denies smoking or other drug use Home medications: None Brief hospital course Patient was admitted to the hospital with a chief complaint of right lateral chest pain. Right hip x-ray was done which showed possible fracture of the 10 rib following which patient was put on pain management. Patient was observed overnight for any worsening of symptoms, but patient was stable reported improvement. Records were requested from [facility] [place] where he was treated for lung cancer and reportedly lung lobectomy was done. Patient was discharged in stable condition to home and was sent pain medications as needed. Advised to follow up with the PCP in 1 week Consults/Reason for consult none Operations or Procedures Right ribs x-ray IMPRESSION: No acute cardiopulmonary disease. Possible subtle nondisplaced fracture of the right lateral 10th rib. Condition at Discharge: Good Final Diagnosis/Problems List Intractable right rib pain ? Right rib fracture ?h/o lung cancer right lung s/p lobectomy h/o COPD Discharge Disposition: Home Discharge Instruct/Medications Diet: Regular Activity: No Restrictions, As Tolerated Follow Up/Referral: Follow up with the PCP in one week Medications: as per EMR Discharge Statement: "Patient was advised to return to the ER or call 911 if any headaches, dizziness, shortness of breath, chest pain, abdominal pain, bleeding, fevers, or worsening of medical condition. Patient was counseled about treatment plan, medications, possible side effects, patientverbalized understanding. All questions were answered to the best of my ability. This discharge took greater then 30 minutes in planning, reviewing documentation, counseling the patient, and discussing with other team members." ASSESSMENT ASSESSMENT Assessment Intractable right rib pain ? Right rib fracture ?h/o lung cancer right lung s/p lobectomy h/o COPD Date of Service: Feb 03, 2025 Billing Provider: BAYRON GOMEZ MD Common Visit Codes: [id number] DISCH DAY >30min RAMA CASTANON RESIDENT Feb 03, 2025 22:31 BAYRON GOMEZ MD Feb 05, 2025 10:13
== END 2025-02-03 13:25 | disposition home or self-care (01) | DRG 313 ==
LOC: ER 09:11 → OVERFLOW 14:20 → CENTRAL 17:20
PROVIDERS: ADMIT Student in an Organized Health Care Education/Training Program; ATTEND Emergency Medicine
DX: R07.89 Other chest pain (principal); S22.31XA Fracture of one rib, right side, initial encounter for closed fracture; J98.4 Other disorders of lung; W18.39XA Other fall on same level, initial encounter; J44.9 Chronic obstructive pulmonary disease, unspecified; Z91.81 History of falling; Z85.118 Personal history of other malignant neoplasm of bronchus and lung; Z87.01 Personal history of pneumonia (recurrent); Y93.89 Activity, other specified; Y92.89 Other specified places as the place of occurrence of the external cause; Y99.8 Other external cause status
CPT/HCPCS: 36415; 71045; 71101; 80048; 80053; 81001; 85025; 87081; 93005; 96365; 96375; G0378; J2405

== ENCOUNTER 2025-03-01 11:14 | Emergency (ER) | payer OTHER ==
[~2025-03-01] VITALS: Ht 175.3 cm; Wt 82.0 kg
[~2025-03-01 11:14] MED LIST changes: +HYDR-4902 PO
[2025-03-01 12:41] VITALS: BP 107/61; PULSE 90; RESP 20; TEMP 97.4; O2SAT 99
--- NOTE | 2025-03-01 13:05 | ED.PDOC ---
History of Present Illness HPI Comments A 64 YEAR OLD MALE PRESENTS TO THE ED WITH CHIEF COMPLAINT OF RIGHT RIB PAIN. PATIENT REPORTS THAT HE HAD A PREVIOUSLY DIAGNOSED RIGHT RIB 10TH FRACTURE DIAGNOSED ON 02/02/25. PATIENT RELAYS THAT HE IS STILL EXPERIENCING PAIN TO THE SAME AREA AGAIN TODAY, NOTING THAT [employer] THAT WERE PRESCRIBED DO NO RELIEVE HIS PAIN. PER PT, [employer] MADE HIM CONSTIPATION NOT HELPING HIS RIBS PAIN. PATIENT DENIES NEW FALL, NEW INJURY, HEAD INJURY, CHEST PAIN, SOB, OR DIZZINESS. NO OTHER SYMPTOMS REPORTED AT THIS TIME OF CARE. Chief Complaint: Rib Pain Time Seen by MD: 12:50 Primary Care Provider: MATHEUS Iqbal Notes: Nurses Notes, Medications, Allergies Allergies: Coded Allergies: NO KNOWN ALLERGIES (Unverified , 01/28/25) Home Meds Active Scripts Methocarbamol (Methocarbamol) 750 Mg Tab, 750 MG PO BID, #20 TAB Prov:JUSTIN TILLEY 03/01/25 Lidocaine (Lidocaine Patch 5%) 5 % Pad, 5 % EX DAILY, #30 PAD Prov:JUSTIN TILLEY 03/01/25 Hydrocodone-Acetaminophen (Hydrocodone Bitartrate/AC 5-325 mg) 1 Tab Tab, 1 TAB PO QID PRN for 5 Days, #20 TAB Prov:BAYRON GOMEZ MD 02/03/25 Ibuprofen Micronized (MOTRIN TABLET) 600 Mg Tb, 600 MG PO TID PRN, #40 TAB *Black box warning-NSAIDS can increase risk of AL & hypertension, GI irritation, ulceration, bleed, perferation. Do not use post cardiac surgery. Use short duration/lowest effective dose. Prov:HUONG DECKER MD 01/28/25 Azithromycin (Zithromax Z-Christian) 250 Mg Tab, 250 MG PO DAILY for 5 Days, #6 TAB Prov:HUONG DECKER MD 01/28/25 Information Source: Patient Mode of Arrival: Ambulatory Severity: Moderate Timing: Days Duration: Since onset Prehospital treatment: None Medication Refill: For: Pain (RIGHT MIDDLE RIBS ) Past Medical History PAST MEDICAL HISTORY: Cancer, COPD Surgical History: Denies all surgeries Family History Family History: Reviewed,noncontributory to illness Social History Smoker: Non-Smoker Alcohol: Denies ETOH Use Drugs: Denies Drug Use Lives In: Home Constitutional: reports: others (ANXIOUS ); denies: chills, diaphoresis, fatigue, fever, malaise, sweats, weakness EENTM: denies: blurred vision, double vision, ear bleeding, ear discharge, ear drainage, ear pain, ear ringing, eye pain, eye redness, hearing loss, mouth pain, mouth swelling, nasal discharge, nose bleeding, nose congestion, nose pain, photophobia, tearing, throat pain, throat swelling, voice changes, others Respiratory: denies: cough, hemoptysis, orthopnea, SOB at rest, shortness of breath, SOB with excertion, stridor, wheezing, others Cardiovascular: denies: chest pain, dizzy spells, diaphoresis, Dyspnea on exertion, edema, irregular heart beat, left arm pain, lightheadedness, palpitations, PND, syncope, others Gastrointestinal: denies: abdomen distended, abdominal pain, blood streaked bowels, constipated, diarrhea, dysphagia, difficulty swallowing, hematemesis, melena, nausea, poor appetite, poor fluid intake, rectal bleeding, rectal pain, vomiting, others Genitourinary: denies: burning, dysuria, flank pain, frequency, hematuria, incontinence, penile discharge, penile sore, pain, testicle pain, testicle swelling, urgency, others Neurological: denies: dizziness, fainting, headache, left sided numbness, left sided weakness, numbness, paresthesia, pre-existing deficit, right sided numbness, right sided weakness, seizure, speech problems, tingling, tremors, weakness, others Musculoskeletal: reports: muscle pain, others (RIGHT RIB PAIN); denies: back pain, gout, joint pain, joint swelling, muscle stiffness, neck pain Integumetry: denies: bruises, change in color, change in hair/nails, dryness, laceration, lesions, lumps, rash, wounds, others Allergic/Immunocompromised: denies: Difficulty Healing, Frequent Infections, Hives, Itching, others Hematologic/Lymphatic: denies: anemia, blood clots, easy bleeding, easy b ruising, swollen glands, others Endocrine: denies: excessive hunger, excessive sweating, excessive thirst, excessive urination, flushing, intolerance to cold, intolerance to heat, unexplained weight gain, unexplained weight loss, others Psychiatric: denies: anxiety, bipolar disorder, depression, hopeless, panic disorder, schizophrenia, sleepless, suicidal, others All Other Systems: Reviewed and Negative Physical Exam General Appearance: No Apparent Distress, Normal, Other (ANXIOUS ) HEENT: Normal ENT Inspection, PERRL/EOMI, Pharynx Normal Neck: Full Range of Motion, Non-Tender, Normal, Normal Inspection Respiratory: Chest Non-Tender, Lungs Clear, No Accessory Muscle Use, No Respiratory Distress, Normal Breath Sounds Cardiovascular: No Edema, No JVD, No Murmur, No Gallop, Normal Peripheral Pulses, Regular Rate/Rhythm Breast Exam: Deferred Gastrointestinal: No Organomegaly, Non Tender, No Pulsatile Mass, Normal Bowel Sounds, Soft Genitalia: Deferred Pelvic: Deferred Rectal: Deferred Extremities: No calf tenderness, Normal capillary refill, Normal inspection, Normal range of motion, Non-tender, No pedal edema Musculoskeletal : Location: Right Apperance: Tenderness: Moderate (RIGHT MIDDLE RIBS, NO REDNESS, SWELLING AND DEFORMITY. ) Neurologic: Alert, paper finisher II-XII nml as Tested, No Motor Deficits, Normal Affect, Normal Mood, No Sensory Deficits Cerebellar Function: Normal Reflexes: Normal Skin: Dry, Normal Color, Warm Peripheral Pulses: 2+ carotid (R), 2+ carotid (L), 2+ dorsalis pedis (R), 2+ dorsalis pedis (L) Lymphatic: No Adenopathy Was a procedure done? Was a procedure done?: No Differential Dx Considerations may include: FRACTURE, CONTUSION, SPRAIN, STRAIN X-Ray, Labs, Meds, VS Vital Signs Date Time Temp Pulse Resp B/P (MAP) Pulse Ox O2 Delivery O2 Flow Rate FiO2 03/01/25 12:41 97.4 90 20 107/61 (76) 99 97.4 03/01/25 12:41 90 20 99 Room Air 03/01/25 11:53 97.4 90 20 107/61 (76) 99 97.4 Current Medications Medications (Trade) Dose Ordered Sig/Aldair Route Start Time Stop Time Status Last Admin Ketorolac Tromethamine (Toradol Injection) 60 mg ONCE ONCE IM 03/01/25 13:15 03/01/25 13:16 DC 03/01/25 13:39 X-Ray, Labs, Meds, VS Comment EXTERNAL MEDICAL RECORDS REVIEWED: [NONE] INDEPENDENT HISTORIANS: [NONE] SOCIAL DETERMINANTS OF HEALTH: [NONE] LABS ORDERED: NONE REVIEWED AND INTERPRETED RESULTS: NONE IMAGING ORDERED: NONE TREATMENTS ORDERED: TORADOL 60MG IM PROCEDURES PERFORMED: NONE CRITICAL CARE TIME: NONE I HAVE DISCUSSED THE PATIENT WITH THE ATTENDING PHYSICIAN DR. BROWN AND HE AGREES WITH THE PATIENT'S PLAN OF CARE AND DISPOSITION. BASED ON HISTORY OF PRESENT ILLNESS, AND PHYSICAL EXAM, PATIENT WILL BE DISCHARGED HOME. DISCUSSED PLAN FOR DISCHARGE HOME WITH RX LIDOCAINE PATCH AND ROBAXIN. MEDICATION WARNINGS GIVEN. SHARED DECISION MAKING: DISCUSSED WITH PATIENT THAT THEIR WORKUP WAS NORMAL. PATIENT INSTRUCTED TO FOLLOW UP WITH PRIMARY CARE PROVIDER IN 1-2 DAYS FOR RE- EVALUATION OF SYMPTOMS. PATIENT VERBALIZES UNDERSTANDING TO RETURN TO ED FOR NEW OR WORSENING SYMPTOMS OR IF FOLLOW UP WITH PCP CANNOT BE OBTAINED. PATIENT FEELS COMFORTABLE GOING HOME AT THIS TIME. ALL QUESTIONS ADDRESSED AT TIME OF DISCHARGE. Time of 1ST Reevaluation: 13:48 Reevaluation 1ST: Improved Patient Education/Counseling: Diagnosis, Treatment, Need For Follow Up Family Education/Counseling: Diagnosis, Treatment, No Family Present Medical Screening: No EMC Exist At This Time Departure 1 Departure Time of Disposition: 14:00 Impression: Primary Impression: Fracture of one rib, right side, sequela Additional Impression: Pain management Disposition: 01 HOME / SELF CARE / HOMELESS Condition: Stable Additional Instructions: FOLLOW-UP WITH PCP IN 1 TO 2 DAYS. TAKE MEDICATIONS PRESCRIBED. RETURN TO ED FOR ANY NEW OR WORSENING SYMPTOMS. e-Prescriptions Methocarbamol (Methocarbamol) 750 Mg Tab 750 MG PO BID, #20 TAB Prov: JUSTIN TILLEY 03/01/25 Lidocaine (Lidocaine Patch 5%) 5 % Pad 5 % EX DAILY, #30 PAD Prov: JUSTIN TILLEY 03/01/25 Discharged With: Self Critical Care Note Critical Care Time?: No Stability Stability form required: No Heart Score Heart Score: Heart Score Response (Comments) Value History N/A 0 EKG N/A 0 Age N/A 0 Risk Factors N/A 0 Troponin N/A 0 Total 0 I personally scribed for JUSTIN TILLEY ([email or web address]) on 03/01/25 at 13:05. Electronically submitted by Gordy Scales ([email or web address]). I personally scribed for JUSTIN TILLEY ([email or web address]) on 03/01/25 at 13:47. Electronically submitted by Gordy Scales ([email or web address]). JUSTIN TILLEY Mar 01, 2025 13:05
[2025-03-01] MEDS: KETOROLAC TROMETH 60MG/2ML VIAL IM ONE (13:39)
[2025-03-01] MEDS ORDERED: METH-1182 PO (13:48)
[2025-03-01] MEDS ORDERED: LIDO5PAD12 EX (13:48)
== END 2025-03-01 13:58 | disposition home or self-care (01) ==
LOC: ER 11:15
DX: S22.31XA Fracture of one rib, right side, initial encounter for closed fracture (principal); K59.00 Constipation, unspecified; J44.9 Chronic obstructive pulmonary disease, unspecified; Z79.899 Other long term (current) drug therapy; X58.XXXA Exposure to other specified factors, initial encounter; Y93.89 Activity, other specified; Y92.89 Other specified places as the place of occurrence of the external cause; Y99.8 Other external cause status
CPT/HCPCS: 96372; 99283; J1885

== ENCOUNTER 2025-03-08 11:59 | Emergency (ER) | payer OTHER ==
[~2025-03-08] VITALS: Ht 172.7 cm; Wt 81.5 kg
[~2025-03-08 11:59] MED LIST changes: +LIDO5PAD12 EX; +METH-1182 PO
--- NOTE | 2025-03-08 14:00 | ED.PDOC ---
Ghassan. trauma (HPI) HPI Comments A 64 YEAR OLD MALE PRESENTS TO THE ED WITH CHIEF COMPLAINT OF LEFT RIB PAIN. PATIENT REPORTS THAT HE HAD ACCIDENTALLY FELL OUT OF BED THIS MORNING, FALLING ONTO HIS LEFT SIDE. PATIENT RELAYS THAT SINCE THEN HE HAS HAD LEFT SIDED RIB PAIN THAT WORSENS WHEN COUGHING, SNEEZING, OR HICCUPING. PATIENT DENIES ANY CHEST PAIN, SOB, OR HEAD INJURY. PT DENIES ANY OTHER BODY INJURY. NO OTHER SYMPTOMS REPORTED AT THIS TIME OF CARE. Chief Complaint: Rib Pain Time Seen by MD: 13:57 Primary Care Provider: MATHEUS Iqbal notes: Nurses Notes, Medications, Allergies Allergies: Coded Allergies: NO KNOWN ALLERGIES (Unverified , 01/28/25) Home Meds Active Scripts Methocarbamol (Methocarbamol) 750 Mg Tab, 750 MG PO BID, #20 TAB Prov:JUSTIN TILLEY 03/01/25 Lidocaine (Lidocaine Patch 5%) 5 % Pad, 5 % EX DAILY, #30 PAD Prov:JUSTIN TILLEY 03/01/25 Hydrocodone-Acetaminophen (Hydrocodone Bitartrate/AC 5-325 mg) 1 Tab Tab, 1 TAB PO QID PRN for 5 Days, #20 TAB Prov:BAYRON GOMEZ MD 02/03/25 Ibuprofen Micronized (MOTRIN TABLET) 600 Mg Tb, 600 MG PO TID PRN, #40 TAB *Black box warning-NSAIDS can increase risk of PR & hypertension, GI irritation, ulceration, bleed, perferation. Do not use post cardiac surgery. Use short duration/lowest effective dose. Prov:HUONG DECKER MD 01/28/25 Azithromycin (Zithromax Z-Christian) 250 Mg Tab, 250 MG PO DAILY for 5 Days, #6 TAB Prov:HUONG DECKER MD 01/28/25 Information Source: Patient Mode of Arrival: Ambulatory Severity: Moderate Timing: Hours Duration: Since onset Prehospital treatment: None Location: Other (LT RIBS) Mechanism: Fall Associated signs and symtoms: None Past Medical History PAST MEDICAL HISTORY: Cancer, COPD Surgical History: Denies all surgeries Family History Family History: Reviewed,noncontributory to illness Social History Smoker: Non-Smoker Alcohol: Denies ETOH Use Drugs: Denies Drug Use Lives In: Home Constitutional: denies: chills, diaphoresis, fatigue, fever, malaise, sweats, weakness, others EENTM: denies: blurred vision, double vision, ear bleeding, ear discharge, ear drainage, ear pain, ear ringing, eye pain, eye redness, hearing loss, mouth pain, mouth swelling, nasal discharge, nose bleeding, nose congestion, nose pain, photophobia, tearing, throat pain, throat swelling, voice changes, others Respiratory: denies: cough, hemoptysis, orthopnea, SOB at rest, shortness of breath, SOB with excertion, stridor, wheezing, others Cardiovascular: denies: chest pain, dizzy spells, diaphoresis, Dyspnea on exertion, edema, irregular heart beat, left arm pain, lightheadedness, palpi tations, PND, syncope, others Gastrointestinal: denies: abdomen distended, abdominal pain, blood streaked bowels, constipated, diarrhea, dysphagia, difficulty swallowing, hematemesis, melena, nausea, poor appetite, poor fluid intake, rectal bleeding, rectal pain, vomiting, others Genitourinary: denies: burning, dysuria, flank pain, frequency, hematuria, incontinence, penile discharge, penile sore, pain, testicle pain, testicle swelling, urgency, others Neurological: denies: dizziness, fainting, headache, left sided numbness, left sided weakness, numbness, paresthesia, pre-existing deficit, right sided numbness, right sided weakness, seizure, speech problems, tingling, tremors, weakness, others Musculoskeletal: reports: muscle pain, others (LT RIB PAIN); denies: back pain, gout, joint pain, joint swelling, muscle stiffness, neck pain Integumetry: denies: bruises, change in color, change in hair/nails, dryness, laceration, lesions, lumps, rash, wounds, others Allergic/Immunocompromised: denies: Difficulty Healing, Frequent Infections, Hives, Itching, others Hematologic/Lymphatic: denies: anemia, blood clots, easy bleeding, easy bruising, swollen glands, others Endocrine: denies: excessive hunger, excessive sweating, excessive thirst, excessive urination, flushing, intolerance to cold, intolerance to heat, unexplained weight gain, unexplained weight loss, others Psychiatric: denies: anxiety, bipolar disorder, depression, hopeless, panic disorder, schizophrenia, sleepless, suicidal, others All Other Systems: Reviewed and Negative Physical Exam General Appearance: No Apparent Distress, Normal HEENT: Normal ENT Inspection, PERRL/EOMI, Pharynx Normal, TMs Normal Neck: Full Range of Motion, Non-Tender, Normal, Normal Inspection Respiratory: Chest Non-Tender, Lungs Clear, No Accessory Muscle Use, No Respiratory Distress, Normal Breath Sounds Cardiovascular: No Edema, No JVD, No Murmur, No Gallop, Normal Peripheral Pulses, Regular Rate/Rhythm Breast Exam: Deferred Gastrointestinal: No Organomegaly, Non Tender, No Pulsatile Mass, Normal Bowel Sounds, Soft Genitalia: Deferred Pelvic: Deferred Rectal: Deferred Extremities: No calf tenderness, Normal capillary refill, Normal inspection, Normal range of motion, Non-tender, No pedal edema Musculoskeletal : Location: Left Apperance: Tenderness: Moderate (LEFT MIDDLE RIBS WITH TENDERNESS AND MILD SWELLING, NO OPEN WOUND SEEN. ) Neurologic: Alert, enlisted advisor II-XII nml as Tested, No Motor Deficits, Normal Affect, Normal Mood, No Sensory Deficits Cerebellar Function: Normal Reflexes: Normal Skin: Dry, Normal Color, Warm Peripheral Pulses: 2+ carotid (R), 2+ carotid (L) Lymphatic: No Adenopathy Was a procedure done? Was a procedure done?: No Differential Diagnosis Multiple Trauma: Fractures, Contusion X-Ray, Labs, Meds, VS Vital Signs Date Time Temp Pulse Resp B/P (MAP) Pulse Ox O2 Delivery O2 Flow Rate FiO2 03/08/25 14:25 98.4 85 19 118/80 (93) 98 98.4 03/08/25 13:33 85 17 98 Room Air 03/08/25 13:33 98.9 85 17 126/78 (94) 98 98.9 03/08/25 12:41 98.9 85 17 126/78 (94) 98 98.9 LT RIB XR: FINDINGS: No focal consolidation, pleural effusion or significant pneumothorax. Normal cardiomediastinal silhouette. No displaced left rib fracture. IMPRESSION: 1. No acute cardiopulmonary disease. No displaced HS:Y rib fracture. X-Ray, Labs, Meds, VS Comment EXTERNAL MEDICAL RECORDS REVIEWED: [NONE] INDEPENDENT HISTORIANS: [NONE] SOCIAL DETERMINANTS OF HEALTH: [NONE] LABS ORDERED: NONE REVIEWED AND INTERPRETED RESULTS: LT RIB XR INTERPRETED BY ME. 9TH LT RIB FRACTURE NOTED. PENDING RADIOLOGIST REPORT. IMAGING ORDERED: LT RIB XR TREATMENTS ORDERED: NORCO 10/325MG PO PROCEDURES PERFORMED: NONE CRITICAL CARE TIME: NONE I HAVE DISCUSSED THE PATIENT WITH THE ATTENDING PHYSICIAN DR. PENA AND HE AGREES WITH THE PATIENT'S PLAN OF CARE AND DISPOSITION. BASED ON HISTORY OF PRESENT ILLNESS, AND PHYSICAL EXAM, PATIENT WILL BE DISCHARGED HOME. DISCUSSED PLAN FOR DISCHARGE HOME. PT HAS PAIN MEDICATION AT HOME. SHARED DECISION MAKING: DISCUSSED WITH PATIENT THAT THEIR WORKUP WAS NORMAL. PATIENT INSTRUCTED TO FOLLOW UP WITH PRIMARY CARE PROVIDER IN 1-2 DAYS FOR RE- EVALUATION OF SYMPTOMS. PATIENT VERBALIZES UNDERSTANDING TO RETURN TO ED FOR NEW OR WORSENING SYMPTOMS OR IF FOLLOW UP WITH PCP CANNOT BE OBTAINED. PATIENT FEELS COMFORTABLE GOING HOME AT THIS TIME. ALL QUESTIONS ADDRESSED AT TIME OF DISCHARGE. Images Reviewed?: Images reviewed and evaluated by me Time of 1ST Reevaluation: 15:02 Reevaluation 1ST: Improved Patient Education/Counseling: Diagnosis, Treatment, Need For Follow Up Family Education/Counseling: Diagnosis, Treatment, Need For Follow Up Medical Screening: No EMC Exist At This Time Departure 1 Departure Time of Disposition: 15:14 Impression: Primary Impression: Fracture of one rib of right side Qualified Codes: S22.31XA - Fracture of one rib, right side, initial encounter for closed fracture Disposition: 01 HOME / SELF CARE / HOMELESS Condition: Stable Additional Instructions: FOLLOW-UP WITH PCP IN 1 TO 2 DAYS. TAKE MEDICATIONS PRESCRIBED. RETURN TO ED FOR ANY NEW OR WORSENING SYMPTOMS. Discharged With: Self Critical Care Note Critical Care Time?: No Stability Stability form required: No Heart Score Heart Score: Heart Score Response (Comments) Value History N/A 0 EKG N/A 0 Age N/A 0 Risk Factors N/A 0 Troponin N/A 0 Total 0 I personally scribed for JUSTIN TILLEY ([email or web address]) on 03/08/25 at 14:00. Electronically submitted by Gordy Scales ([email or web address]). I personally scribed for JUSTIN TILLEY ([email or web address]) on 03/08/25 at 14:45. Electronically submitted by Gordy Scales ([email or web address]). I personally scribed for JUSTIN TILLEY ([email or web address]) on 03/08/25 at 14:46. Electronically submitted by Gordy Scales ([email or web address]). I personally scribed for JUSTIN TILLEY ([email or web address]) on 03/08/25 at 15:05. Electronically submitted by Gordy Scales ([email or web address]). JUSTIN TILLEY Mar 08, 2025 14:00
[2025-03-08 14:25] VITALS: BP 118/80; PULSE 85; RESP 19; TEMP 98.4; O2SAT 98
--- NOTE | 2025-03-08 14:42 | DVH ---
EXAMINATION: XY L RIB X RAY INDICATION: FALL COMPARISON: XY R RIB XRAY on DOS: 02/02/25 TECHNIQUE: Frontal view of the chest and 3 views of the left ribs history FINDINGS: No focal consolidation, pleural effusion or significant pneumothorax. Normal cardiomediastinal silhou ette. No displaced left rib fracture. IMPRESSION: 1. No acute cardiopulmonary disease. No displaced HS:Y rib fracture.
[2025-03-08] MEDS: HYDROcodone-ACET 10/325MG TAB PO ONE (15:04)
== END 2025-03-08 15:05 | disposition home or self-care (01) ==
LOC: ER 12:05
DX: S22.42XA Multiple fractures of ribs, left side, initial encounter for closed fracture (principal); J44.9 Chronic obstructive pulmonary disease, unspecified; Z79.899 Other long term (current) drug therapy; W06.XXXA Fall from bed, initial encounter; Y93.89 Activity, other specified; Y92.89 Other specified places as the place of occurrence of the external cause; Y99.8 Other external cause status
CPT/HCPCS: 71101

== ENCOUNTER 2025-08-10 12:36 | Emergency (ER) | payer OTHER ==
[~2025-08-10] VITALS: Ht 172.7 cm; Wt 86.8 kg
[2025-08-10] MEDS ORDERED: HYDROcodone-ACET 10/325MG TAB PO ONE (13:30)
--- NOTE | 2025-08-10 13:31 | ED.PDOC ---
Back pain HPI HPI Comments A 65 YEAR OLD FEMALE PRESENTS TO THE ED WITH COMPLAINT OF LOWER BACK PAIN. PATIENT STATES HE HAS A HISTORY OF CHRONIC LOWER BACK PAIN AND NOTES HIS PAIN IN HIS LOWER BACK HAS BEEN WORSE OVER THE LAST 10 DAYS. PATIENT REPORTS HIS PAIN IS WORSE WITH MOVEMENT. PATIENT DENIES SADDLE ANESTHESIA, URINARY INCONTINENCE, BOWEL INCONTINENCE, FEVER, CHILLS, SHORTNESS OF BREATH, CHEST PAIN, ABDOMINAL PAIN, NAUSEA, VOMITING, HEADACHE, OR OTHER COMPLAINTS. NO OTHER SYMPTOMS OR MODIFYING FACTORS AT THIS TIME. PATIENT IS ALERT, ORIENTED X 4, AND HAS STEADY GAIT. Chief Complaint: Back Pain Time Seen by MD: 12:50 Primary Care Provider: MATHEUS Iqbal Notes: Nurses Notes, Medications, Allergies Allergies: Coded Allergies: NO KNOWN ALLERGIES (Unverified , 01/28/25) Home Meds Active Scripts Tramadol HCl (Tramadol HCl) 50 Mg Tab, 50 MG PO BID, #20 TAB Prov:JUSTIN TILLEY 08/10/25 Methocarbamol (Methocarbamol) 750 Mg Tab, 750 MG PO BID, #20 TAB Prov:JUSTIN TILLEY 03/01/25 Lidocaine (Lidocaine Patch 5%) 5 % Pad, 5 % EX DAILY, #30 PAD Prov:JUSTIN TILLEY 03/01/25 Hydrocodone-Acetaminophen (Hydrocodone Bitartrate/AC 5-325 mg) 1 Tab Tab, 1 TAB PO QID PRN for 5 Days, #20 TAB Prov:BAYRON GOMEZ MD 02/03/25 Ibuprofen Micronized (MOTRIN TABLET) 600 Mg Tb, 600 MG PO TID PRN, #40 TAB *Black box warning-NSAIDS can increase risk of [place] & hypertension, GI irritation, ulceration, bleed, perferation. Do not use post cardiac surgery. Use short duration/lowest effective dose. Prov:HUONG DECKER MD 01/28/25 Azithromycin (Zithromax Z-Christian) 250 Mg Tab, 250 MG PO DAILY for 5 Days, #6 TAB Prov:HUONG DECKER MD 01/28/25 Information Source: Patient Mode of Arrival: Ambulatory Timing: Days Duration: Since onset, Days Location of Back pain: (B) Lumbar Radiates to: Posterior: (R) Buttocks, (R) Thigh Radiates to: Lateral: (R) Buttocks, (R) Thigh Severity: Moderate Prehospital treatment: None Quality: Aching, Cramping Onset: Spontaneous History of: Chronic Back Pain Modifying Factors: Movement Associated signs and symptoms: None Past Medical History PAST MEDICAL HISTORY: Cancer, COPD Past Medical History (Other): CHRONIC LOWER BACK PAIN Surgical History: Denies all surgeries Family History Family History: Reviewed,noncontributory to illness Social History Smoker: Non-Smoker Alcohol: Denies ETOH Use Drugs: Denies Drug Use Lives In: Home Constitutional: denies: chills, diaphoresis, fatigue, fever, malaise, sweats, weakness, others EENTM: denies: blurred vision, double vision, ear bleeding, ear discharge, ear drainage, ear pain, ear ringing, eye pain, eye redness, hearing loss, mouth pain, mouth swelling, nasal discharge, nose bleeding, nose congestion, nose pain, photophobia, tearing, throat pain, throat swelling, voice changes, others Respiratory: denies: cough, hemoptysis, orthopnea, SOB at rest, shortness of breath, SOB with excertion, stridor, wheezing, others Cardiovascular: denies: chest pain, dizzy spells, diaphoresis, Dyspnea on exertion, edema, irregular heart beat, left arm pain, lightheadedness, palpitations, PND, syncope, others Gastrointestinal: denies: abdomen distended, abdominal pain, blood streaked bowels, constipated, diarrhea, dysphagia, difficulty swallowing, hematemesis, melena, nausea, poor appetite, poor fluid intake, rectal bleeding, rectal pain, vomiting, others Genitourinary: denies: burning, dysuria, flank pain, frequency, hematuria, in continence, penile discharge, penile sore, pain, testicle pain, testicle swelling, urgency, others Neurological: denies: dizziness, fainting, headache, left sided numbness, left sided weakness, numbness, paresthesia, pre-existing deficit, right sided numbness, right sided weakness, seizure, speech problems, tingling, tremors, weakness, others Musculoskeletal: reports: back pain (LOWER BACK PAIN), muscle pain; denies: gout, joint pain, joint swelling, muscle stiffness, neck pain, others Allergic/Immunocompromised: denies: Difficulty Healing, Frequent Infections, Hives, Itching, others Hematologic/Lymphatic: denies: anemia, blood clots, easy bleeding, easy bruising, swollen glands, others Endocrine: denies: excessive hunger, excessive sweating, excessive thirst, excessive urination, flushing, intolerance to cold, intolerance to heat, unexplained weight gain, unexplained weight loss, others Psychiatric: denies: anxiety, bipolar disorder, depression, hopeless, panic d isorder, schizophrenia, sleepless, suicidal, others All Other Systems: Reviewed and Negative Physical Exam General Appearance: No Apparent Distress, Normal HEENT: Normal ENT Inspection, PERRL/EOMI, Pharynx Normal, TMs Normal Neck: Full Range of Motion, Non-Tender, Normal, Normal Inspection Respiratory: Chest Non-Tender, Lungs Clear, No Accessory Muscle Use, No Respiratory Distress, Normal Breath Sounds Cardiovascular: No Edema, No JVD, No Murmur, No Gallop, Normal Peripheral Pulses, Regular Rate/Rhythm Breast Exam: Deferred Gastrointestinal: No Organomegaly, Non Tender, No Pulsatile Mass, Normal Bowel Sounds, Soft Genitalia: Deferred Pelvic: Deferred Rectal: Deferred Extremities: No calf tenderness, Normal capillary refill, Normal inspection, Normal range of motion, Non-tender, No pedal edema Musculoskeletal : Location: Bilateral Extremity Location: Back Apperance: Tenderness: Moderate (muscle spasm on lower back, no bony tenderness, swelling and deformity. ) Neurologic: Alert, quilter fixer II-XII nml as Tested, No Motor Deficits, Normal Affect, Normal Mood, No Sensory Deficits Cerebellar Function: Normal Reflexes: Normal Skin: Dry, Normal Color, Warm Peripheral Pulses: 2+ carotid (R), 2+ carotid (L), 2+ dorsalis pedis (R), 2+ dorsalis pedis (L) Lymphatic: No Adenopathy Was a procedure done? Was a procedure done?: No Back Pain Differential Dx Differential Diagnosis: Musculoskeletal Pain, Other (PAIN MANAGEMENT ) Other Differential Diagnosis DDD, LUMBAR RADICULOPATHY X-Ray, Labs, Meds, VS Vital Signs Date Time Temp Pulse Resp B/P (MAP) Pulse Ox O2 Delivery O2 Flow Rate FiO2 08/10/25 12:41 97.0 105 18 144/87 97 97.0 Current Medications Medications (Trade) Dose Ordered Sig/[place] Route Start Time Stop Time Status Last Admin Acetaminophen/ Hydrocodone Bitart ([place] 5/325MG Tab) 1 tab ONCE ONCE PO 08/10/25 13:45 08/10/25 13:46 08/10/25 13:43 X-Ray, Labs, Meds, VS Comment EXTERNAL MEDICAL RECORDS REVIEWED: [NONE] INDEPENDENT HISTORIANS: [NONE] SOCIAL DETERMINANTS OF HEALTH: [NONE] LABS ORDERED: NONE REVIEWED AND INTERPRETED RESULTS: NONE IMAGING ORDERED: XR L-SPINE: [INTERPRETED BY ME. NO ACUTE FRACTURE OR DISLOCATION SEEN. DDD OF L-SPINE VISUALIZED. PENDING RADIOLOGY REVIEW.] TREATMENTS ORDERED: NORCO 5/325MG PO PROCEDURES PERFORMED: NONE CRITICAL CARE TIME: NONE I HAVE DISCUSSED THE PATIENT WITH THE ATTENDING PHYSICIAN DR. BROWN AND HE AGREES WITH THE PATIENT'S PLAN OF CARE AND DISPOSITION. BASED ON HISTORY OF PRESENT ILLNESS, AND PHYSICAL EXAM, PATIENT WILL BE DISCHARGED HOME. DISCUSSED PLAN FOR DISCHARGE HOME WITH RX [ULTRAM]. MEDICATION WARNINGS GIVEN. SHARED DECISION MAKING: PATIENT INSTRUCTED TO FOLLOW UP WITH PRIMARY CARE PROVIDER IN 1-2 DAYS FOR RE-EVALUATION OF SYMPTOMS. PATIENT VERBALIZES U NDERSTANDING TO RETURN TO ED FOR NEW OR WORSENING SYMPTOMS OR IF FOLLOW UP WITH PCP CANNOT BE OBTAINED. PATIENT FEELS COMFORTABLE GOING HOME AT THIS TIME. ALL QUESTIONS ADDRESSED AT TIME OF DISCHARGE. Images Reviewed?: Images reviewed and evaluated by me Time of 1ST Reevaluation: 14:00 Reevaluation 1ST: Improved Patient Education/Counseling: Diagnosis, Treatment, Need For Follow Up Family Education/Counseling: Diagnosis, Treatment, Need For Follow Up Medical Screening: No EMC Exist At This Time SEPSIS Sepsis Screen Date sepsis recognized/suspect: Aug 10, 2025 Time Sepsis recognized/suspect: 1241 Recent Procedure: No On Antibiotic Therapy: No Respiratory Rate >20: No Heart Rate >90: Yes Temp<36 C (96.8 F) or >38.3 C: No SBP <90 or MAP <65 mmHG: No New Acute Mental Status Change: No Is the patient on CPAP, BIPAP,: No Physician Orders Lumbar Spine 3 View (08/10/25 13:25) Hydrocodone-Acet 5/325mg Tab ([place] 5/32 (08/10/25 13:45) Vital Signs Date Time Temp Pulse Resp B/P (MAP) Pulse Ox O2 Delivery O2 Flow Rate FiO2 08/10/25 12:41 97.0 105 18 144/87 97 97.0 Medications Medications Dose Ordered Sig/[place] Route Start Time Stop Time Status Last Admin Dose Admin Acetaminophen/ Hydrocodone Bitart 1 tab ONCE ONCE PO 08/10/25 13:45 08/10/25 13:46 08/10/25 13:43 Departure 1 Departure Time of Disposition: 14:00 Impression: Primary Impression: DDD (degenerative disc disease), lumbar Qualified Codes: M51.362 - Other intervertebral disc degeneration, lumbar region with discogenic back pain and lower extremity pain Additional Impression: Pain management Disposition: HOME / SELF CARE / HOMELESS Condition: Stable Additional Instructions: FOLLOW-UP WITH PCP IN 1 TO 2 DAYS. TAKE MEDICATIONS PRESCRIBED. RETURN TO ED FOR ANY NEW OR WORSENING SYMPTOMS. e-Prescriptions Tramadol HCl (Tramadol HCl) 50 Mg Tab 50 MG PO BID, #20 TAB Prov: JUSTIN TILLEY 08/10/25 Discharged With: Self Critical Care Note Critical Care Time?: No Stability Stability form required: No I personally scribed for JUSTIN TILLEY ([email or web address]) on 08/10/25 at 13:31. Electronically submitted by Hardik Lei ([email or web address]). I personally scribed for JUSTIN TILLEY ([email or web address]) on 08/10/25 at 13:44. Electronically submitted by Hardik Lei ([employer]). JUSTIN TILLEY Aug 10, 2025 13:31
[2025-08-10] MEDS ORDERED: TRAM-626 PO (13:43)
[2025-08-10] MEDS: HYDROcodone-ACET 5/325MG TAB PO ONE (13:43)
[2025-08-10 13:55] VITALS: BP 114/71; PULSE 102; RESP 18; TEMP 99.2; O2SAT 94
--- NOTE | 2025-08-10 13:59 | DVH ---
INDICATION: LOWER BACK PAIN TO RIGHT BUTTOCK TECHNIQUE: 2 views of the lumbar spine were obtained. COMPARISON: None FINDINGS: There are no acute fractures or subluxations. Scoliosis. Vascular calcifications of the aorta. IMPRESSION: No acute fracture or subluxation.
== END 2025-08-10 13:57 | disposition home or self-care (01) ==
LOC: ER 12:36
DX: M51.362 Other intervertebral disc degeneration, lumbar region with discogenic back pain and lower extremity pain (principal); G89.29 Other chronic pain; J44.9 Chronic obstructive pulmonary disease, unspecified; Z79.899 Other long term (current) drug therapy
CPT/HCPCS: 72100

== ENCOUNTER 2025-10-06 13:28 | Emergency (ER) | payer OTHER ==
[~2025-10-06] VITALS: Ht 175.3 cm; Wt 87.5 kg
[~2025-10-06 13:28] MED LIST changes: +TRAM-626 PO
--- NOTE | 2025-10-06 15:59 | ED.PDOC ---
Musculoskeletal HPI Comments This is a 65 year-old male who presents to the ED with a chief complaint of L shoulder pain for x2 weeks. Patient states he pulled a heavy chair X2 weeks ago, with pain and discomfort since. Patient has no further complaints at this time and otherwise denies dizziness, fever, chills, LOC, or N/V/D. Chief Complaint: Upper Extremity Time Seen by MD: 15:26 Primary Care Provider: MATHEUS Iqbal Notes: Medications, Allergies Allergies: Coded Allergies: NO KNOWN ALLERGIES (Unverified , 01/28/25) Home Meds Active Scripts Tramadol HCl (Tramadol HCl) 50 Mg Tab, 50 MG PO BID, #20 TAB Prov:JUSTIN TILLEY 08/10/25 Methocarbamol (Methocarbamol) 750 Mg Tab, 750 MG PO BID, #20 TAB Prov:JUSTIN TILLEY 03/01/25 Lidocaine (Lidocaine Patch 5%) 5 % Pad, 5 % EX DAILY, #30 PAD Prov:JUSTIN TILLEY 03/01/25 Hydrocodone-Acetaminophen (Hydrocodone Bitartrate/AC 5-325 mg) 1 Tab Tab, 1 TAB PO QID PRN for 5 Days, #20 TAB Prov:BAYRON GOMEZ MD 02/03/25 Ibuprofen Micronized (MOTRIN TABLET) 600 Mg Tb, 600 MG PO TID PRN, #40 TAB *Black box warning-NSAIDS can increase risk of MS & hypertension, GI irritation, ulceration, bleed, perferation. Do not use post cardiac surgery. Use short duration/lowest effective dose. Prov:HUONG DECKER MD 01/28/25 Azithromycin (Zithromax Z-Christian) 250 Mg Tab, 250 MG PO DAILY for 5 Days, #6 TAB Prov:HUONG DECKER MD 01/28/25 Information Source: Patient Mode of Arrival: Ambulatory Location: Left Extremity Location: Shoulder Timing: Weeks Severity: Moderate Pain: Moderate Onset of Symptoms: After Trauma Symptoms: Pain Associated signs and symptoms: Shoulder pain Past Medical History PAST MEDICAL HISTORY: Cancer, COPD Surgical History: Denies all surgeries Family History Family History: Reviewed,noncontributory to illness Social History Smoker: Non-Smoker Alcohol: Denies ETOH Use Drugs: Denies Drug Use Lives In: Home Constitutional: denies: chills, diaphoresis, fatigue, fever, malaise, sweats, weakness, others EENTM: denies: blurred vision, double vision, ear bleeding, ear discharge, ear drainage, ear pain, ear ringing, eye pain, eye redness, hearing loss, mouth pain, mouth swelling, nasal discharge, nose bleeding, nose congestion, nose pain, photophobia, tearing, throat pain, throat swelling, voice changes, others Respiratory: denies: cough, hemoptysis, orthopnea, SOB at rest, shortness of breath, SOB with excertion, stridor, wheezing, others Cardiovascular: denies: chest pain, dizzy spells, diaphoresis, Dyspnea on exertion, edema, irregular heart beat, left arm pain, lightheadedness, p alpitations, PND, syncope, others Gastrointestinal: denies: abdomen distended, abdominal pain, blood streaked bowels, constipated, diarrhea, dysphagia, difficulty swallowing, hematemesis, melena, nausea, poor appetite, poor fluid intake, rectal bleeding, rectal pain, vomiting, others Genitourinary: denies: burning, dysuria, flank pain, frequency, hematuria, incontinence, penile discharge, penile sore, pain, testicle pain, testicle swelling, urgency, others Neurological: denies: dizziness, fainting, headache, left sided numbness, left sided weakness, numbness, paresthesia, pre-existing deficit, right sided numbness, right sided weakness, seizure, speech problems, tingling, tremors, weakness, others Musculoskeletal: reports: joint pain, joint swelling; denies: back pain, gout, muscle pain, muscle stiffness, neck pain, others Integumetry: denies: bruises, change in color, change in hair/nails, dryness, laceration, lesions, lumps, rash, wounds, others Allergic/Immunocompromised: denies: Difficulty Healing, Frequent Infections, Hives, Itching, others Hematologic/Lymphatic: denies: anemia, blood clots, easy bleeding, easy bruising, swollen glands, others Endocrine: denies: excessive hunger, excessive sweating, excessive thirst, excessive urination, flushing, intolerance to cold, intolerance to heat, une xplained weight gain, unexplained weight loss, others Psychiatric: denies: anxiety, bipolar disorder, depression, hopeless, panic disorder, schizophrenia, sleepless, suicidal, others All Other Systems: Reviewed and Negative Physical Exam General Appearance: No Apparent Distress, Normal HEENT: Normal ENT Inspection, Pharynx Normal, TMs Normal Neck: Non-Tender, Normal, Normal Inspection Respiratory: Chest Non-Tender, Lungs Clear, No Accessory Muscle Use, No Respiratory Distress, Normal Breath Sounds Cardiovascular: No Edema, No Murmur, No Gallop Breast Exam: Deferred Gastrointestinal: No Organomegaly, Non Tender, No Pulsatile Mass, Normal Bowel Sounds, Soft Genitalia: Deferred Pelvic: Deferred Rectal: Deferred Extremities: No pedal edema Musculoskeletal : Apperance: Normal Neurologic: Alert, No Motor Deficits, Normal Affect, Normal Mood, No Sensory Deficits Cerebellar Function: NOT DONE Reflexes: NOT DONE Skin: Dry, Normal Color, Warm Lymphatic: No Adenopathy Was a procedure done? Was a procedure done?: No Differential Diagnosis EXT Differential Diagnosis: Fracture, Sprain, Dislocation X-Ray, Labs, Meds, VS Vital Signs Date Time Temp Pulse Resp B/P (MAP) Pulse Ox O2 Delivery O2 Flow Rate FiO2 10/06/25 16:29 99.7 69 16 140/84 (102) 97 99.7 10/06/25 13:29 98.8 99 16 124/84 96 98.8 Time of 1ST Reevaluation: 16:30 Reevaluation 1ST: Unchanged Patient Education/Counseling: Diagnosis, Treatment Family Education/Counseling: No Family Present Medical Screening: No EMC Exist At This Time Departure 1 Departure Time of Disposition: 18:15 (In my judgment patient has musculoskeletal strain of the shoulder. We will discharge patient home with outpatient follow up) Impression: Primary Impression: Shoulder sprain Disposition: HOME / SELF CARE / HOMELESS Condition: Stable Referrals: KENDALL WARE MD Additional Instructions: You likely sprained your shoulder You can wear a sling as needed for comfort For pain you can take the followinam: Ibuprofen 400mg with food Noon: Acetaminophen 1000mg 4pm: Ibuprofen 400mg with food 8pm: Acetaminophen 1000mg You were referred to an orthopedic surgeon to ensure you are healing well. Please call for an appointment within one week. If your symptoms worsen or you have any other concerns then please return to the ER. Discharged With: Self Critical Care Note Critical Care Time?: No Stability Stability form required: No Heart Score Heart Score: Heart Score Response (Comments) Value History N/A 0 EKG N/A 0 Age N/A 0 Risk Factors N/A 0 Troponin N/A 0 Total 0 I personally scribed for FRAN FLORES MD ([email or web address]) on 10/06/25 at 15:59. Electronically submitted by Gaviota Morley ([facility]). FRAN FLORES MD Oct 06, 2025 15:59
--- NOTE | 2025-10-06 16:22 | DVH ---
CLINICAL INDICATION: left shoulder pain TECHNIQUE: 4 radiographic views of the left shoulder were obtained. Comparison: None FINDINGS/IMPRESSION: There is no fracture or dislocation. No abnormal soft tissue calcification.
[2025-10-06 18:27] VITALS: BP 140/86; PULSE 61; RESP 16; TEMP 98.9
[2025-10-06 18:28] VITALS: O2SAT 97
== END 2025-10-06 18:36 | disposition home or self-care (01) ==
LOC: ER 13:28
DX: S43.409A Unspecified sprain of unspecified shoulder joint, initial encounter (principal); J44.9 Chronic obstructive pulmonary disease, unspecified; Z79.899 Other long term (current) drug therapy; X58.XXXA Exposure to other specified factors, initial encounter; Y93.89 Activity, other specified; Y92.89 Other specified places as the place of occurrence of the external cause; Y99.8 Other external cause status
CPT/HCPCS: 73030